=== PATIENT | male | born 1955 | race African-American/Black ===

== ENCOUNTER 2023-10-20 18:44 | Emergency (ER) | payer OTHER ==
[~2023-10-20] VITALS: Ht 172.7 cm; Wt 68.0 kg
[2023-10-20 18:46] VITALS: BP 141/81; PULSE 85; RESP 20; TEMP 98.2; O2SAT 99
[2023-10-20] MEDS ORDERED: HYDROCODONE/ACETAMINOPHEN 5/325MG TABLET PO ONE (20:00)
[2023-10-20] MEDS ORDERED: CYCL5TAB MT (21:12)
[2023-10-20] MEDS ORDERED: IBUP-2029 MT (21:12)
== END 2023-10-20 22:30 | disposition home or self-care (01) ==
LOC: ER 18:44
DX: M25.511 Pain in right shoulder (principal); M25.512 Pain in left shoulder; M79.604 Pain in right leg; V49.59XA Passenger injured in collision with other motor vehicles in traffic accident, initial encounter; Y93.89 Activity, other specified; Y92.89 Other specified places as the place of occurrence of the external cause; Y99.8 Other external cause status
CPT/HCPCS: 73502; 73552; 99284